=== PATIENT | female | born 1955 | race Caucasian/White ===

== ENCOUNTER 2019-06-05 18:49 | Emergency (ER) | payer OTHER ==
[~2019-06-05] VITALS: Ht 152.4 cm; Wt 59.9 kg
[2019-06-05 19:21] VITALS: Ht 152.4 cm; Wt 59.9 kg
[2019-06-05 19:30] LABS: BASOPHIL % 0.1 % (0-2); PLATELET COUNT 230 x10^3mcL (130-400)
[2019-06-05 19:38] LABS: CALCIUM 8.9 mg/dL (8.5-10.1); CREATININE SERUM 1.1 mg/dL (0.6-1.0); POTASSIUM SERUM 4.6 mmol/L (3.5-5.1)
[2019-06-05 19:42] LABS: ALBUMIN 3.7 g/dL (3.4-5.0); BILIRUBIN TOTAL 0.3 mg/dL (0.20-1.00); TOTAL PROTEIN, SERUM 7.7 g/dL (6.4-8.2)
[2019-06-05 21:58] LABS: microscopic required? NO
[2019-06-05 22:21] LABS: UA SPECIFIC GRAVITY >=1.030 (1.005-1.035); urine erythrocyte NEGATIVE (NEGATIVE)
[2019-06-06 00:09] VITALS: BP 119/76
== END 2019-06-06 00:09 | disposition home or self-care (01) ==
LOC: ED 18:49
PROVIDERS: Emergency Medicine
DX: K52.1 Toxic gastroenteritis and colitis (principal); R10.13 Epigastric pain; T38.3X5A Adverse effect of insulin and oral hypoglycemic [antidiabetic] drugs, initial encounter; K21.9 Gastro-esophageal reflux disease without esophagitis; E03.9 Hypothyroidism, unspecified; E11.9 Type 2 diabetes mellitus without complications; Y92.89 Other specified places as the place of occurrence of the external cause; Z79.899 Other long term (current) drug therapy
CPT/HCPCS: 83880; C9113; J2405; J3490; J7030